=== PATIENT | male | born 1995 | race Caucasian/White ===

== ENCOUNTER 2019-11-16 03:24 | Emergency (ER) | payer SELFPAY ==
[2019-11-16 03:42] VITALS: BP 123/57
--- NOTE | 2019-11-16 05:19 | ER Document Report ---
HPI - HPI Time Seen by Provider: 11/16/19 05:05 Pain Level: Denies Context: Patient is a 23-year-old male that comes emergency department for chief complaint of a bug in the right ear. He states he felt a crawling while he was sleeping, this awoke him from sleep. He did place vegetable oil in the ear in an attempt to kill it, he states he has not felt it move since he did. He did try to get it out with tweezers but was unable to do so. He denies bleeding, current plan, difficulty hearing, or any other complaints. - EENT EENT: REPORTS: Ear Pain - REPRODUCTIVE Reproductive: DENIES: : Past Medical History - General Information source: Patient - Social History Smoking Status: Current Every Day Smoker Chew tobacco use (# tins/day): No Frequency of alcohol use: None Drug Abuse: Marijuana Lives with: Spouse/Significant other Family History: Reviewed & Not Pertinent Patient has suicidal ideation: No Patient has homicidal ideation: No - Medical History Medical History: Negative - Immunizations Immunizations up to date: Yes Hx Diphtheria, Pertussis, Tetanus Vaccination: Yes Vertical Provider Document - CONSTITUTIONAL General Appearance: WD/WN, No Apparent Distress - INFECTION CONTROL TRAVEL OUTSIDE OF THE [place] IN LAST 30 DAYS: No - HEENT HEENT: Atraumatic, Normocephalic. negative: Normal ENT Exam - Left ear normal. Right ear appears to have a small insect near the eardrum, no bleeding, discharge, insect is not moving. Ear canal is nontender, tragus nontender, unremarkable otherwise. Remaining ENT exam normal. - NECK Neck: Normal Inspection - RESPIRATORY Respiratory: Breath Sounds Normal, No Respiratory Distress - CARDIOVASCULAR Cardiovascular: Regular Rate, Regular Rhythm - GI/ABDOMEN Gastrointestinal: Abdomen Soft, Abdomen Non-Tender - BACK Back: Normal Inspection - MUSCULOSKELETAL/EXTREMETIES Musculoskeletal/Extremeties: MAEW, FROM, Non-Tender - NEURO Level of Consciousness: Awake, Alert, Appropriate Motor/Sensory: No Motor Deficit, No Sensory Deficit - DERM Integumentary: Warm, Dry, No Rash Course - Re-evaluation Re-evalutation: Patient with an insect in the right ear canal. This was irrigated with warm water until the insect came close to the exit, then I obtained the insect out of the canal by grasping it with alligator forceps. Ear was rechecked and noted to be normal with no signs of injury, bleeding, and normal tympanic membrane. - Vital Signs Vital signs: Temp Pulse Resp BP Pulse Ox 97.8 F 77 16 123/57 L 100 11/16/19 03:35 11/16/19 03:35 11/16/19 03:35 11/16/19 03:35 11/16/19 03:35 Discharge - Discharge Clinical Impression: Foreign body in ear Qualifiers: Encounter type: initial encounter Laterality: right Qualified Code(s): T16.1XXA - Foreign body in right ear, initial encounter Condition: Stable Disposition: HOME, SELF-CARE Additional Instructions: The bug in your right ear was removed. I recommend a drying agent such as [id number] eardrops or peroxide for the next couple of days because the ear was irrigated. Follow-up with primary care. Return for any concerning symptoms including severe pain, vomiting, draining/discharge from the ear, or any other concerning symptoms. Referrals: BRANDIE SWANN MD [NO LOCAL MD] - Follow up as needed
== END 2019-11-16 05:27 | disposition home or self-care (01) ==
LOC: ER 03:24
DX: T16.1XXA Foreign body in right ear, initial encounter (principal); X58.XXXA Exposure to other specified factors, initial encounter; F17.200 Nicotine dependence, unspecified, uncomplicated; F12.10 Cannabis abuse, uncomplicated
CPT/HCPCS: 99282